=== PATIENT | female | born 1970 | race African-American/Black ===

== ENCOUNTER 2016-12-09 09:53 | Emergency (ER) | payer BC, OTHER ==
--- NOTE | ~2016-12-09 | CR72 ---
[facility] A Service of [facility] RADIOLOGY TEXT RESULTS PATIENT: MAGAN HUNTER LOCATION: [facility] : 68 UNIT #: [id number] AGE: [address]: Javed Rodriguez MD SEX: F ORDER DR: [id number] [facility] [address] [place], [place] [address] [id number] MR#: [id number] Acc #: [id number] NAME: MAGAN HUNTER : 1970 SEX: F STUDY DATE/TIME: UNIT: [facility] ROOM: STUDY DESCRIPTION: CR Chest Single View Portable Attending Physician: Javed Rodriguez M.D. Ordering Physician: Javed Rodriguez M.D. Primary Care Physician: Primary Care Physician No MEDICAL IMAGING REPORT This report is preliminary unless electronic signature is present EXAM Chest portable 12/09/2016, 1014 hours HISTORY 46-year-old with complaint of dizziness and shortness of air this morning COMPARISON 07/21/2016 FINDINGS Portable upright chest demonstrates heart size within normal limits with stable tortuous aorta. Lung volumes are slightly low with bilateral interstitial change diffusely. There are stable right hilar and left hilar fullness with previous CT scans demonstrating some underlying nodes. The interstitial changes in the lungs are not significantly changed from prior exam, but are felt most likely chronic. No definite superimposed density or pleural effusion. IMPRESSION Low lung volume film with stable right paratracheal and bilateral hilar fullness likely related to slightly enlarged lymph nodes as were seen on prior CT 06/23/2016. There are interstitial changes in the lungs which appear similar to prior studies and are most likely chronic. No definite acute superimposed density. No pleural effusion. Dictated by... Becky Thacker M.D. THIS IS AN ELECTRONICALLY VERIFIED REPORT Becky Thacker M.D. at 12/09/2016 1:43 PM [facility] A Service of [facility] RADIOLOGY TEXT RESULTS PATIENT: MAGAN HUNTER LOCATION: [facility] : 68 UNIT #: [id number] AGE: [address]: Javed Rodriguez MD SEX: F ORDER DR: GABRIELE/vel TD: 12/09/2016 11:55 JOB #: [id number] MEDICAL IMAGING REPORT Page 1 of 1 COPY
--- NOTE | ~2016-12-09 | EKG ---
PATIENT: MAGAN HUNTER UNIT #: [id number] Ventricular Rate: 73 BPM Atrial Rate: 73 BPM P-R Interval: 132 ms QRS Duration: 92 ms Q-T Interval: 426 ms QTC Calculation(Bezet): 469 ms P [place]: 29 degrees Calculated R [place]: 37 degrees Calculated T [place]: 20 degrees Diagnosis Line: Normal sinus rhythm with sinus arrhythmia Diagnosis Line: Normal ECG Diagnosis Line: When compared with ECG of 15-JAN-2015 05:48, Diagnosis Line: Vent. rate has decreased BY 39 BPM Diagnosis Line: Right bundle branch block is no longer Present Diagnosis Line: Confirmed by MARTA NDIAYE MD ([id number]) on 12/10/2016 Diagnosis Line: 9:35:42 AM INTERPRETING MD: SENTHIL OVERTON
[~2016-12-09 09:53] MED LIST: NO MEDICATIONS
[2016-12-09 10:12] LABS: BASOPHIL# 0.1 X10e3 (0-0.3); BASOPHIL% 0.4 % (0-2.5); EOSINOPHIL# 0.9 X10e3 (0-0.7); EOSINOPHIL% 6.9 % (0.0-7.0); HEMATOCRIT 39.8 % (35.0-45.0); HEMOGLOBIN 12.6 gm/dL (12.0-16.0); LYMPHOCYTE# 2.9 X10e3 (1.0-3.5); LYMPHOCYTE% 23.2 % (17.0-45.0); MEAN CELL VOLUME 86.8 FL (83-96); MEAN CORPUSCULAR HEMOGLOBIN 27.4 PG (28-34); MEAN CORPUSCULAR HGB CONC 31.5 g/dL (30-36); MEAN PLATELET VOLUME 9.1 FL (6.5-11.5); MONOCYTE% 7.7 % (3.0-12.0); NEUTROPHIL# 7.8 X10e3 (1.5-7.1); NEUTROPHIL% 61.8 % (40-75); PLATELET COUNT 279 X10e3 (140-420); RED BLOOD COUNT 4.59 X10e (3.90-5.30); RED CELL DISTRIBUTION WIDTH 12.9 % (11.0-15.5); WHITE BLOOD COUNT 12.6 X10e3 (4.0-10.5)
[2016-12-09 10:15] LABS: DIFF IND NO
[2016-12-09 10:41] LABS: ALBUMIN SERUM 3.6 g/dL (3.5-5.0); BILIRUBIN, DIRECT 0.1 mg/dL (0.0-0.2); BILIRUBIN,INDIRECT 0.5 mg/dL (0.0-0.9); BILIRUBIN,TOTAL 0.6 mg/dL (0.2-2.0); GLOM FILT RATE Estimated 77.7 mL/min (>60); POTASSIUM 3.9 mmol/L (3.5-5.1); PROTEIN TOTAL SERUM 7.3 g/dL (6.0-8.3)
[2016-12-09 10:57] LABS: POC - CKMB <1.0 ng/mL (0.0-7.9); POC - TROPONIN <0.05 ng/mL (<=0.05)
[2016-12-09 11:12] LABS: URINE SOURCE CLEAN CATCH
[2016-12-09 11:19] LABS: URINE APPEARANCE CLEAR; URINE BILIRUBIN NEG (NEG); URINE BLOOD NEG (NEG); URINE COLOR YELLOW; URINE GLUCOSE NEG (NEG); URINE KETONE NEG (NEG); URINE LEUKOCYTE ESTERASE NEG (NEG); URINE NITRATE NEG (NEG); URINE PROTEIN NEG (NEG); URINE SPECIFIC GRAVITY 1.016 (1.003-1.035); URINE UROBILINOGEN 0.2 MG/DL (NEG)
[2016-12-09 11:23] LABS: CULTURE INDICATED? NO
== END 2016-12-09 11:42 | disposition home or self-care (01) ==
LOC: CED 09:53
PROVIDERS: Emergency Medicine
DX: R51 Headache (principal); R42 Dizziness and giddiness; F17.210 Nicotine dependence, cigarettes, uncomplicated; Z90.710 Acquired absence of both cervix and uterus; Z98.51 Tubal ligation status
CPT/HCPCS: 36415; 71010; 80048; 80076; 81003; 82553; 84484; 85025; 93005; 96361; 96374; 96375; 99284; J1885; J2765